=== PATIENT | male | born 1965 | race Caucasian/White ===

== ENCOUNTER 2017-09-25 18:36 | Emergency (ER) | payer MEDICAID ==
[~2017-09-25] VITALS: Ht 177.8 cm; Wt 104.3 kg
--- NOTE | 2017-09-25 18:43 | Emergency Room Report ---
History of Present Illness General Chief Complaint: Male Urogenital Problems Source: Patient, EMS Present Illness HPI Patient is a 51-year-old male who presented after increased abdominal discomfort and abdominal distention. The patient stated that he had been unable to urinate for approximately 12 hours. The patient had prior history of urethral stricture. Patient was noted to have prior history of the scar tissue formation to his urethra after multiple urologic procedures.He states in the past the catheter was unable to be placed and he required urologist to place Allergies: Coded Allergies: No Known Allergies (Unverified , 09/25/17) Patient History Past Medical History: see triage record Reviewed Nursing Documentation: PMH: Agreed; PSxH: Agreed Nursing Documentation-PMH Past Medical History: No History, Except For Hx Hypertension: Yes Hx Pacemaker: No - HYPOTHYROID, TEAR IN URETHRA Review of Systems All Other Systems: negative except mentioned in HPI Physical Exam Vital Signs Date Time Temp Pulse Resp B/P (MAP) Pulse Ox O2 Delivery O2 Flow Rate FiO2 09/25/17 18:32 99.0 74 18 155/117 98 Room Air 99.0 Sp02 EP Interpretation: reviewed, normal General Appearance: normal inspection, well appearing, no apparent distress, alert, GCS 15 Head: atraumatic ENT: normal ENT inspection, hearing grossly normal, normal voice Neck: normal inspection, full range of motion, supple, no bony tend Respiratory: normal inspection, lungs clear, normal breath sounds, no respiratory distress, no retraction, no wheezing Cardiovascular #1: regular rate, rhythm, no edema Gastrointestinal: normal inspection, normal bowel sounds, non tender, soft, no guarding, no hernia, other - distended bladder Genitourinary: no CVA tenderness Musculoskeletal: normal inspection, back normal, normal range of motion Neurologic: normal inspection, alert, oriented x3, responsive, virtualization architect III-XII nml as tested, speech normal Psychiatric: normal inspection, judgement/insight normal, mood/affect normal Skin: normal inspection, normal color, no rash Medical Decision Making Diagnostic Impression: Primary Impression: Acute urinary retention Additional Impression: History of urethral narrowing ER Course patient presented for urinary retention.Differential diagnosis included was not limited to the prostate enlargement, and neurogenic bladder, urethral stricture among others.Because of complexity of patient's case laboratory testing and imaging studies were ordered.Laboratory tests showed evidence of mild urinary infection. Patient was given oral antibiotics. Urology was consult for urinary catheter placement. Patient had a suprapubic catheter placed by Dr. Nerithe patient is given protrfor antibiotics. He advised follow-s urologist. Labs Test 09/25/17 19:00 09/25/17 21:15 White Blood Count 11.9 K/UL (4.8-10.8) Red Blood Count 4.52 M/UL (4.70-6.10) Hemoglobin 14.6 G/DL (14.2-18.0) Hematocrit 41.2 % (42.0-52.0) Mean Corpuscular Volume 91 FL (80-99) Mean Corpuscular Hemoglobin 32.3 PG (27.0-31.0) Mean Corpuscular Hemoglobin Concent 35.4 G/DL (32.0-36.0) Red Cell Distribution Width 11.8 % (11.6-14.8) Platelet Count 208 K/UL (150-450) Mean Platelet Volume 7.1 FL (6.5-10.1) Neutrophils (%) (Auto) 72.6 % (45.0-75.0) Lymphocytes (%) (Auto) 16.6 % (20.0-45.0) Monocytes (%) (Auto) 8.3 % (1.0-10.0) Eosinophils (%) (Auto) 1.3 % (0.0-3.0) Basophils (%) (Auto) 1.3 % (0.0-2.0) Prothrombin Time 10.0 SEC (9.30-11.50) Prothromb Time International Ratio 1.0 (0.9-1.1) Activated Partial Thromboplast Time 26 SEC (23-33) Sodium Level 139 MMOL/L (136-145) Potassium Level 4.3 MMOL/L (3.5-5.1) Chloride Level 104 MMOL/L (98-107) Carbon Dioxide Level 27 MMOL/L (21-32) Anion Gap 8 mmol/L (5-15) Blood Urea Nitrogen 25 mg/dL (7-18) Creatinine 1.4 MG/DL (0.55-1.30) Estimat Glomerular Filtration Rate 53.0 mL/min (>60) Glucose Level 114 MG/DL (74-106) Calcium Level 9.0 MG/DL (8.5-10.1) Total Bilirubin 0.8 MG/DL (0.2-1.0) Aspartate Amino Transf (AST/SGOT) 18 U/L (15-37) Alanine Aminotransferase (ALT/SGPT) 26 U/L (12-78) Alkaline Phosphatase 66 U/L (46-116) Total Protein 7.1 G/DL (6.4-8.2) Albumin 3.8 G/DL (3.4-5.0) Globulin 3.3 g/dL Albumin/Globulin Ratio 1.2 (1.0-2.7) Urine Color Pale yellow Urine Appearance Slightly cloudy Urine pH 6.5 (4.5-8.0) Urine Specific [place] 1.015 (1.005-1.035) Urine Protein 2+ (NEGATIVE) Urine Glucose (UA) Negative (NEGATIVE) Urine Ketones Negative (NEGATIVE) Urine Occult Blood 5+ (NEGATIVE) Urine Nitrite Positive (NEGATIVE) Urine Bilirubin Negative (NEGATIVE) Urine Urobilinogen Normal MG/DL (0.0-1.0) Urine Leukocyte Esterase 3+ (NEGATIVE) Urine RBC 10-15 /HPF (0 - 0) Urine WBC 5-10 /HPF (0 - 0) Urine Squamous Epithelial Cells None /LPF (NONE/OCC) Urine Amorphous Sediment Few /LPF (NONE) Urine Bacteria Few /HPF (NONE) Last Vital Signs Date Time Temp Pulse Resp B/P (MAP) Pulse Ox O2 Delivery O2 Flow Rate FiO2 09/25/17 18:32 99.0 74 18 155/117 98 Room Air 99.0 Status: improved Disposition: HOME, SELF-CARE Condition: Stable Scripts Hydrocodone Bit/Acetaminophen 5-325* (NORCO 5-325*) 1 Each Tablet 1 TAB ORAL Q6H PRN for For Pain, #10 TAB 0 Refills Prov: Efrain Zavaleta 09/25/17 Nitrofurantoin Monohyd/M-Cryst* (MACROBID 100 MG*) 100 Mg Capsule 100 MG ORAL EVERY 12 HOURS, #14 CAP Prov: Efrain Zavaleta 09/25/17 Efrain Zavaleta September 25, 2017 18:43
[2017-09-25] MEDS ORDERED: Morphine Sulfate 4mg/ml Inj IVP ONE (19:00)
[2017-09-25 19:23] LABS: BASOPHILS % (AUTO) 1.3 % (0.0-2.0); EOSINOPHILS % (AUTO) 1.3 % (0.0-3.0); HEMATOCRIT 41.2 % (42.0-52.0); HEMOGLOBIN 14.6 G/DL (14.2-18.0); LYMPHOCYTES % (AUTO) 16.6 % (20.0-45.0); MEAN CORPUSCULAR VOLUME 91 FL (80-99); MONOCYTES % (AUTO) 8.3 % (1.0-10.0); NEUTROPHILS % (AUTO) 72.6 % (45.0-75.0); PLATELET COUNT 208 K/UL (150-450); RED BLOOD COUNT 4.52 M/UL (4.70-6.10); RED CELL DISTRIBUTION WIDTH 11.8 % (11.6-14.8); WHITE BLOOD COUNT 11.9 K/UL (4.8-10.8)
[2017-09-25 19:27] LABS: ANION GAP 8 mmol/L (5-15); BLOOD UREA NITROGEN 25 mg/dL (7-18); CARBON DIOXIDE 27 MMOL/L (21-32); CHLORIDE 104 MMOL/L (98-107); CREATININE 1.4 MG/DL (0.55-1.30); POTASSIUM 4.3 MMOL/L (3.5-5.1); SODIUM 139 MMOL/L (136-145)
[2017-09-25 19:33] LABS: ALANINE AMINOTRANSFERASE 26 U/L (12-78); ALBUMIN 3.8 G/DL (3.4-5.0); ALBUMIN/GLOBULIN RATIO 1.2 (1.0-2.7); ALKALINE PHOSPHATASE 66 U/L (46-116); ASPARTATE AMINO TRANSFERASE 18 U/L (15-37); BILIRUBIN,TOTAL 0.8 MG/DL (0.2-1.0)
[2017-09-25 20:14] VITALS: BP 150/95
[2017-09-25] MEDS ORDERED: NITROFURANTOIN100 M2 ORAL (21:15)
[2017-09-25] MEDS ORDERED: NORCO 5-325 TA1 EACH ORAL (21:15)
[2017-09-25 21:23] LABS: APPEARANCE,URINE SLIGHTLY CLOUDY; BILIRUBIN, URINE NEGATIVE (NEGATIVE); COLOR,URINE PALE YELLOW; GLUCOSE, URINE (UA) NEGATIVE (NEGATIVE); KETONES,URINE NEGATIVE (NEGATIVE); LEUKOCYTE ESTERASE ,URINE 3+ (NEGATIVE); NITRITE,URINE POSITIVE (NEGATIVE); PH,URINE 6.5 (4.5-8.0); PROTEIN,URINE 2+ (NEGATIVE); UROBILINOGEN,URINE NORMAL MG/DL (0.0-1.0)
[2017-09-25 21:27] VITALS: BP 119/85
[2017-09-25 21:29] VITALS: BP 119/85
--- NOTE | 2017-09-26 00:15 | Consultation ---
DATE OF CONSULTATION: 09/25/2017 UROLOGY CONSULTATION CONSULTING PHYSICIAN: Param Neri M.D. ATTENDING/REFERRING PHYSICIAN: Dr. Efrain Zavaleta of emergency department. CHIEF COMPLAINT/HISTORY OF PRESENT ILLNESS: I was asked by Dr. Zavaleta to evaluate this 51-year-old gentleman regarding history of urinary retention in the setting of extensive urethral stricture. Briefly, the patient has history of using constriction bands on his penis. He apparently fell asleep once after doing so and developed extensive panurethral stricture. He was seen by Dr. Gretchen Velez at [facility] and was scheduled for urethroplasty for treatment of same, but failed to follow up for the same. The patient now presents to the hospital with abdominal discomfort and distention. He has been unable to urinate for approximately 12 hours' time. Given the above, I was asked to evaluate the patient and place a suprapubic catheter. PAST MEDICAL HISTORY: 1. Substance abuse with methamphetamines. 2. Hypothyroidism. 3. Urethral stricture from trauma. 4. Urinary retention, difficulty voiding secondary to same. PAST SURGICAL HISTORY: None. MEDICATIONS: Please see the chart for current medications and administration details. ALLERGIES: No known drug allergies. SOCIAL HISTORY: Notable for substance abuse in the past. FAMILY HISTORY: Noncontributory. REVIEW OF SYSTEMS: A 12-system review of systems essentially unremarkable outside what is described above. PHYSICAL EXAMINATION: GENERAL: The patient is a middleaged gentleman, awake, alert, oriented x4, pleasant, in no obvious distress. HEENT: NC/AT. EOMI. Oropharynx clear. NECK: Supple. Full range of motion. CHEST: Within normal limits. ABDOMEN: Soft, nontender, and nondistended. EXTREMITIES: Warm and well perfused. No cyanosis, clubbing, or edema. BACK: No CVA tenderness to percussion. NEUROLOGIC: Grossly nonfocal. GENITOURINARY: Reveals a circumcised male phallus. No discharge, lesions, or curvature. There are bilateral descended testes and cord structures. No masses or tenderness to palpation. LABORATORY DATA: White blood cell count 11.9, hematocrit 41.2, and platelets 208,000. PT 10.0, INR 1.0, and PTT 26. Sodium 139, potassium 4.3, chloride 104, bicarbonate 27, BUN 25, creatinine 1.4, glucose 114, calcium 9.0. LFTs within normal limits. No urinalysis is present as the patient cannot urinate. DIAGNOSTIC IMAGING: None. ASSESSMENT AND PLAN: In summary, the patient is a 51-year-old gentleman with history of extensive panurethral stricture with difficulty voiding and now acute urinary retention secondary to same. Physical exam is unremarkable. Laboratory data is also essentially unremarkable outside of slightly elevated creatinine. There was no diagnostic imaging. I discussed these findings today with the patient at bedside. He refused to have an attempt at urethral catheter placement. As such, he was counseled to undergo suprapubic catheter placement. Informed consent was obtained after risks, benefits, and alternatives were discussed with the patient. Once this was done, the area two fingerbreadths above the symphysis pubis was shaved. It was prepped with alcohol. A local injection block with 1% lidocaine with epinephrine was used to numb the site of the proposed incision. An incision was made with #11 blade scalpel. The bladder was localized after the incision was made using a spinal needle. The angle of entry and depth of penetration were noted and a suprapubic catheter was placed with a trocar at the same angle and depth. The catheter was found to be within the bladder. The trocar was removed and the catheter was inflated. It drained clear yellow urine output. It was left to gravity drainage. The patient was instructed to follow up with Dr. Godinez regarding his urethroplasty, he agreed to do so. Thank you for allowing me to participate in the care of this nice gentleman. Please do not hesitate to contact me for any questions that you may further have regarding his care. I will see him with you as needed. Param Neri M.D. DR: GERARDO JOB#: [id number] CC:
== END 2017-09-25 21:30 | disposition home or self-care (01) ==
LOC: EDBD 18:36 → EMR 19:05
DX: R33.9 Retention of urine, unspecified (principal); I10 Essential (primary) hypertension; E03.9 Hypothyroidism, unspecified
CPT/HCPCS: 36415; 80053; 81003; 85025; 85610; 85730; 96374; 99284; J2270

== ENCOUNTER 2017-09-28 09:24 | Emergency (ER) | payer MEDICAID ==
[~2017-09-28] VITALS: Ht 180.3 cm; Wt 106.6 kg
[~2017-09-28 09:24] MED LIST: NITROFURANTOIN100 M2 ORAL; NORCO 5-325 TA1 EACH ORAL
[2017-09-28] MEDS ORDERED: LISINOPRIL30 MG ORAL (09:43)
[2017-09-28] MEDS ORDERED: SYNTHROID112 MCG ORAL (09:43)
[2017-09-28 09:50] VITALS: BP 164/105
[2017-09-28] MEDS ORDERED: Isovue-300 100ml vial INJ ONE (10:00)
[2017-09-28] MEDS ORDERED: Morphine Sulfate 4mg/ml Inj IVP ONE (10:00)
[2017-09-28 10:24] LABS: BASOPHILS % (AUTO) 1.4 % (0.0-2.0); EOSINOPHILS % (AUTO) 1.9 % (0.0-3.0); HEMATOCRIT 41.9 % (42.0-52.0); HEMOGLOBIN 14.5 G/DL (14.2-18.0); LYMPHOCYTES % (AUTO) 20.1 % (20.0-45.0); MEAN CORPUSCULAR VOLUME 93 FL (80-99); NEUTROPHILS % (AUTO) 65.7 % (45.0-75.0); PLATELET COUNT 204 K/UL (150-450); RED BLOOD COUNT 4.51 M/UL (4.70-6.10); RED CELL DISTRIBUTION WIDTH 11.8 % (11.6-14.8); WHITE BLOOD COUNT 8.9 K/UL (4.8-10.8)
[2017-09-28 10:26] LABS: ANION GAP 11 mmol/L (5-15); BLOOD UREA NITROGEN 14 mg/dL (7-18); CALCIUM 8.8 MG/DL (8.5-10.1); CARBON DIOXIDE 23 MMOL/L (21-32); CHLORIDE 107 MMOL/L (98-107); CREATININE 1.2 MG/DL (0.55-1.30); POTASSIUM 4.1 MMOL/L (3.5-5.1); SODIUM 141 MMOL/L (136-145)
[2017-09-28 10:36] LABS: ALANINE AMINOTRANSFERASE 24 U/L (12-78); ALBUMIN 3.4 G/DL (3.4-5.0); ALBUMIN/GLOBULIN RATIO 0.9 (1.0-2.7); ALKALINE PHOSPHATASE 64 U/L (46-116); ASPARTATE AMINO TRANSFERASE 15 U/L (15-37)
--- NOTE | 2017-09-28 10:37 | Emergency Room Report ---
History of Present Illness General Chief Complaint: General Complaint Source: Patient Present Illness HPI 51-year-old male presents ED for evaluation. Patient was seen here a few days ago for suprapubic catheter placement done by urology. Patient is here because he would like a longer Nunez bag, also complaining of lower left abdominal pain since Nunez catheter placement. Dull, 5 out of 10, nonradiating. States the catheter is functioning and there is urine in the back. Denies any fevers or chills. Denies flank pain. Denies nausea or vomiting. No other aggravating or relieving factors. Denies any other associated symptoms Allergies: Coded Allergies: No Known Allergies (Unverified , 09/25/17) Patient History Past Medical History: other - ureteral stricture Past Surgical History: none Pertinent Family History: none Social History: Denies: smoking, alcohol use, drug use Immunizations: UTD Reviewed Nursing Documentation: PMH: Agreed; PSxH: Agreed Nursing Documentation-PMH Past Medical History: No History, Except For Hx Cardiac Problems: No - hypothyrodism Hx Hypertension: Yes Hx Pacemaker: No Hx Asthma: No Hx COPD: No Hx Diabetes: No Hx Cancer: No Hx Gastrointestinal Problems: No History Of Psychiatric Problem: No Hx Neurological Problems: No Hx Cerebrovascular Accident: No Hx Seizures: No Review of Systems All Other Systems: negative except mentioned in HPI Physical Exam Vital Signs Date Time Temp Pulse Resp B/P (MAP) Pulse Ox O2 Delivery O2 Flow Rate FiO2 09/28/17 09:32 98.4 62 16 164/105 95 Room Air 98.4 Sp02 EP Interpretation: reviewed, normal General Appearance: no apparent distress, alert, GCS 15, non-toxic Head: normocephalic, atraumatic Eyes: bilateral eye normal inspection, bilateral eye PERRL ENT: hearing grossly normal, normal pharynx, no angioedema, normal voice Neck: full range of motion, supple/symm/no masses Respiratory: chest non-tender, lungs clear, normal breath sounds, speaking full sentences Cardiovascular #1: regular rate, rhythm, no edema Cardiovascular #2: 2+ carotid (R), 2+ carotid (L), 2+ radial (R), 2+ radial (L) , 2+ dorsalis pedis (R), 2+ dorsalis pedis (L) Gastrointestinal: normal bowel sounds, soft, non-distended, no guarding, no rebound, tenderness - LLQ, other - suprapubic catheter site c/d/i Rectal: deferred Genitourinary: no CVA tenderness Musculoskeletal: back normal, gait/station normal, normal range of motion, non- tender Neurologic: alert, oriented x3, responsive, motor strength/tone normal, sensory intact, speech normal Psychiatric: judgement/insight normal, memory normal, mood/affect normal, no suicidal/homicidal ideation Reflexes: 3+ bicep (R), 3+ bicep (L), 3+ tricep (R), 3+ tricep (L), 3+ knee (R) , 3+ knee (L) Skin: normal color, no rash, warm/dry, well hydrated Lymphatic: no adenopathy Medical Decision Making Diagnostic Impression: Primary Impression: Diverticulosis Qualified Codes: K57.30 - Diverticulosis of large intestine without perforation or abscess without bleeding Additional Impression: UTI (urinary tract infection) Qualified Codes: N39.0 - Urinary tract infection, site not specified ER Course Hospital Course 51-year-old M presents to ED with lower abdominal pain, s/p suprapubic catheter placemnet Differential diagnoses include: appendicitis, diverticulitis, SBO, gastroenteritis Clinical course Patient placed on stretcher. assistant to the president. After initial history and physical I ordered labs, IV fluids, UA, pain medication and CT scan Labs - no leukocytosis, Hb/Hct stable. electrolytes ok. UA+ bacteria CT abdomen and pelvis - diverticulosis, no diverticulitis, suprapubic catheter in place I reviewed EMR. Patient was seen here few days ago. History of ureteral stricture scheduled to have surgery as outpatient at [facility]. Patient had urinary retention. Urology Dr Neri violated the patient and patient declined only catheter placement. They placed a suprapubic catheter Supra pubic catheter is draining. No signs of erythema or induration around the catheter site. Patient given Cipro for UTI. Discussed with Dr Neri and he agrees patient can be safely discharged to home. Discussed findings with patient. Recommend close follow-up with his urologist I feel this is a highly complex case requiring extensive working including EKG/ Rhythm strip, Xray/CT/US, Blood/urine lab work, repeat exams while in ED, and administration of strong opiates/narcotics for pain control, admission to hospital or close patient follow up. Diagnosis - UTI, divertciulosis stable and discharged to home with prescription for Cipro. Followup with PMD. Return to ED if symptoms recur or worsen Labs Test 09/28/17 10:05 09/28/17 10:39 White Blood Count 8.9 K/UL (4.8-10.8) Red Blood Count 4.51 M/UL (4.70-6.10) Hemoglobin 14.5 G/DL (14.2-18.0) Hematocrit 41.9 % (42.0-52.0) Mean Corpuscular Volume 93 FL (80-99) Mean Corpuscular Hemoglobin 32.1 PG (27.0-31.0) Mean Corpuscular Hemoglobin Concent 34.5 G/DL (32.0-36.0) Red Cell Distribution Width 11.8 % (11.6-14.8) Platelet Count 204 K/UL (150-450) Mean Platelet Volume 7.5 FL (6.5-10.1) Neutrophils (%) (Auto) 65.7 % (45.0-75.0) Lymphocytes (%) (Auto) 20.1 % (20.0-45.0) Monocytes (%) (Auto) 11.0 % (1.0-10.0) Eosinophils (%) (Auto) 1.9 % (0.0-3.0) Basophils (%) (Auto) 1.4 % (0.0-2.0) Sodium Level 141 MMOL/L (136-145) Potassium Level 4.1 MMOL/L (3.5-5.1) Chloride Level 107 MMOL/L (98-107) Carbon Dioxide Level 23 MMOL/L (21-32) Anion Gap 11 mmol/L (5-15) Blood Urea Nitrogen 14 mg/dL (7-18) Creatinine 1.2 MG/DL (0.55-1.30) Estimat Glomerular Filtration Rate > 60 mL/min (>60) Glucose Level 92 MG/DL (74-106) Calcium Level 8.8 MG/DL (8.5-10.1) Total Bilirubin 1.0 MG/DL (0.2-1.0) Aspartate Amino Transf (AST/SGOT) 15 U/L (15-37) Alanine Aminotransferase (ALT/SGPT) 24 U/L (12-78) Alkaline Phosphatase 64 U/L (46-116) Total Protein 7.0 G/DL (6.4-8.2) Albumin 3.4 G/DL (3.4-5.0) Globulin 3.6 g/dL Albumin/Globulin Ratio 0.9 (1.0-2.7) Urine Color Yellow Urine Appearance Clear Urine pH 5 (4.5-8.0) Urine Specific [place] 1.025 (1.005-1.035) Urine Protein 3+ (NEGATIVE) Urine Glucose (UA) Negative (NEGATIVE) Urine Ketones Negative (NEGATIVE) Urine Occult Blood 5+ (NEGATIVE) Urine Nitrite Positive (NEGATIVE) Urine Bilirubin 1+ (NEGATIVE) Urine Ictotest Negative Urine Urobilinogen 1 MG/DL (0.0-1.0) Urine Leukocyte Esterase 2+ (NEGATIVE) Urine RBC 20-30 /HPF (0 - 0) Urine WBC 2-4 /HPF (0 - 0) Urine Squamous Epithelial Cells Occasional /LPF Urine Calcium Oxalate Crystals Occasional /LPF (NONE) Urine Bacteria Moderate /HPF (NONE) CT/MRI/US Diagnostic Results CT/MRI/US Diagnostic Results : Imaging Test Ordered: CT A/P Impression suprapubic catheter in place. diverticulosis. no diverticulitis Last Vital Signs Date Time Temp Pulse Resp B/P (MAP) Pulse Ox O2 Delivery O2 Flow Rate FiO2 09/28/17 10:18 98.4 09/28/17 09:50 16 164/105 95 Room Air 09/28/17 09:32 62 Status: improved Disposition: HOME, SELF-CARE Condition: Stable Scripts Ciprofloxacin Hcl* (CIPROFLOXACIN HCL*) 500 Mg Tablet 500 MG ORAL Q12H, #14 TAB 0 Refills Prov: Stef Peña MD 09/28/17 Referrals: NON PHYSICIAN (PCP) Stef Peña MD September 28, 2017 10:37
[2017-09-28 10:50] LABS: APPEARANCE,URINE CLEAR; BILIRUBIN, URINE 1+ (NEGATIVE); GLUCOSE, URINE (UA) NEGATIVE (NEGATIVE); KETONES,URINE NEGATIVE (NEGATIVE); LEUKOCYTE ESTERASE ,URINE 2+ (NEGATIVE); NITRITE,URINE POSITIVE (NEGATIVE); PH,URINE 5 (4.5-8.0); PROTEIN,URINE 3+ (NEGATIVE); UROBILINOGEN,URINE 1 MG/DL (0.0-1.0)
[2017-09-28 11:02] LABS: COLOR,URINE YELLOW
[2017-09-28] MEDS ORDERED: CIPROFLOXACIN500 M2 ORAL (12:30)
[2017-09-28 13:15] VITALS: BP 147/97
== END 2017-09-28 14:00 | disposition home or self-care (01) ==
LOC: EMR 10:05
DX: K57.30 Diverticulosis of large intestine without perforation or abscess without bleeding (principal); N39.0 Urinary tract infection, site not specified; I10 Essential (primary) hypertension; E03.9 Hypothyroidism, unspecified
CPT/HCPCS: 36415; 74177; 80053; 81003; 85025; 87086; 96374; 96375; 99284; J0744; J2270; Q9967

== ENCOUNTER 2017-10-01 20:54 | Emergency (ER) | payer MEDICAID ==
[~2017-10-01] VITALS: Ht 180.3 cm; Wt 104.3 kg
[~2017-10-01 20:54] MED LIST changes: +CIPROFLOXACIN500 M2 ORAL; +LISINOPRIL30 MG ORAL; +SYNTHROID112 MCG ORAL
[2017-10-01 21:31] VITALS: BP 135/93
[2017-10-01 22:28] VITALS: BP 130/93
--- NOTE | 2017-10-02 03:29 | Emergency Room Report ---
History of Present Illness General Chief Complaint: Male Urogenital Problems Source: Patient Present Illness HPI 51-year-old male presents ED complaining of lower abdominal cramping, clogged suprapubic catheter 2 days. States he had suprapubic catheter placed here by urologist last week. History of ureteral stricture. States that he's been noticing reduced urine output in the bag. Pain is cramping, 4 out of 10, nonradiating. Denies fevers or chills. Denies nausea or vomiting. Denies flank pain. No other aggravating relieving factors. Denies any other associated symptoms Allergies: Coded Allergies: No Known Allergies (Unverified , 09/25/17) Patient History Past Medical History: HTN Past Surgical History: none Pertinent Family History: none Social History: Denies: smoking, alcohol use, drug use Immunizations: UTD Reviewed Nursing Documentation: PMH: Agreed; PSxH: Agreed Nursing Documentation-PMH Hx Cardiac Problems: No - hypothyrodism Hx Hypertension: Yes Hx Pacemaker: No Hx Asthma: No Hx COPD: No Hx Diabetes: No Hx Cancer: No Hx Gastrointestinal Problems: No Hx Neurological Problems: No Hx Cerebrovascular Accident: No Hx Seizures: No Review of Systems All Other Systems: negative except mentioned in HPI Physical Exam Vital Signs Date Time Temp Pulse Resp B/P (MAP) Pulse Ox O2 Delivery O2 Flow Rate FiO2 10/01/17 21:04 98.2 72 16 135/93 95 Room Air 98.2 Sp02 EP Interpretation: reviewed, normal General Appearance: no apparent distress, alert, GCS 15, non-toxic Head: normocephalic, atraumatic Eyes: bilateral eye normal inspection, bilateral eye PERRL ENT: hearing grossly normal, normal pharynx, no angioedema, normal voice Neck: full range of motion, supple/symm/no masses Respiratory: chest non-tender, lungs clear, normal breath sounds, speaking full sentences Cardiovascular #1: regular rate, rhythm, no edema Cardiovascular #2: 2+ carotid (R), 2+ carotid (L), 2+ radial (R), 2+ radial (L) , 2+ dorsalis pedis (R), 2+ dorsalis pedis (L) Gastrointestinal: normal bowel sounds, soft, non-distended, no guarding, no rebound, other - suprapubic catheter site C/D/I Rectal: deferred Genitourinary: normal inspection, no CVA tenderness Musculoskeletal: back normal, gait/station normal, normal range of motion, non- tender Neurologic: alert, oriented x3, responsive, motor strength/tone normal, sensory intact, speech normal Psychiatric: judgement/insight normal, memory normal, mood/affect normal, no suicidal/homicidal ideation Reflexes: 3+ bicep (R), 3+ bicep (L), 3+ tricep (R), 3+ tricep (L), 3+ knee (R) , 3+ knee (L) Skin: normal color, no rash, warm/dry, well hydrated Lymphatic: no adenopathy Medical Decision Making Diagnostic Impression: Primary Impression: Blocked suprapubic catheter Qualified Codes: T83.090A - Other mechanical complication of cystostomy catheter, initial encounter ER Course Hospital Course 51-year-old male presents ED complaining of lower cramping pain, blocked suprapubic catheter Differential diagnoses include: obstruction, UTI, BPH Clinical course Patient placed on stretcher. After initial history, physical exam reveals middle-aged male in no acute distress. Suprapubic site clean/dry/intact. No guarding or rebound. Catheter flushed with resulting good flow of urine Patient was seen by myself a few days ago just after he has suprapubic catheter placed. Had CT which showed diverticulosis. Also had UTI and was started on Cipro. Patient is compliant with his medication Diagnosis - blocked suprapubic catheter Stable and discharged home with nolan + leg bag. Instructed to followup with PMD/urologist. Return to ED if symptoms recur or worsen Last Vital Signs Date Time Temp Pulse Resp B/P (MAP) Pulse Ox O2 Delivery O2 Flow Rate FiO2 10/01/17 22:28 98.2 72 16 130/93 95 Room Air 98.2 Status: improved Disposition: HOME, SELF-CARE Condition: Stable Referrals: NON PHYSICIAN (PCP) Patient Instructions: Suprapubic Catheter Home Guide Stef Peña MD October 02, 2017 03:29
== END 2017-10-01 22:35 | disposition home or self-care (01) ==
LOC: EMR 21:23
DX: T83.090A Other mechanical complication of cystostomy catheter, initial encounter (principal); Y84.6 Urinary catheterization as the cause of abnormal reaction of the patient, or of later complication, without mention of misadventure at the time of the procedure; Y92.9 Unspecified place or not applicable; I10 Essential (primary) hypertension
CPT/HCPCS: 99283